=== PATIENT | female | born 1980 | race African-American/Black ===

== ENCOUNTER 2020-07-10 15:21 | Emergency (ER) | payer OTHER ==
[~2020-07-10] VITALS: Ht 165.1 cm; Wt 93.4 kg
[2020-07-10 15:42] VITALS: BP 133/91
[2020-07-10] MEDS ORDERED: Ketorolac 30mg Inj IV ONE (15:45)
--- NOTE | 2020-07-10 15:45 | Emergency Room Report ---
History of Present Illness General Chief Complaint: Back Pain-No Injury Source: Patient Present Illness HPI 39 YO female presents to the ED c/o 08/03 in severity right sided flank pain x 1 week. She denies fevers or chills. She denies hematuria or dysuria. Patient reports on occasion her pain will radiate downward towards the low abdomen. Patient does report increased urinary frequency which began last week. She reports hx of gallstones in the past. She denies abdominal tenderness. She reports she does experience episodes of pain even at rest. reports her symptoms come and go. She denies nausea, vomiting, constipation, diarrhea or suspicion of . She denies trauma or fall. Denies recent strenuous activities. Allergies: Coded Allergies: No Known Allergies (Unverified , 07/10/20) COVID-19 Screening Contact w/high risk pt: No Experienced COVID-19 symptoms?: No COVID-19 Testing performed AIR TUBE RELEASER: No Patient History Past Medical History: see triage record Past Surgical History: none Pertinent Family History: none Last Menstrual Period: implant Now: No Reviewed Nursing Documentation: PMH: Agreed; PSxH: Agreed Nursing Documentation-PMH Past Medical History: No History, Except For Hx Asthma: Yes Review of Systems All Other Systems: negative except mentioned in HPI Physical Exam Vital Signs Date Time Temp Pulse Resp B/P (MAP) Pulse Ox O2 Delivery O2 Flow Rate FiO2 07/10/20 15:30 98.4 79 18 136/122 (127) 95 Room Air Sp02 EP Interpretation: reviewed, normal General Appearance: no apparent distress, alert, GCS 15, non-toxic Head: normocephalic, atraumatic Eyes: bilateral eye normal inspection, bilateral eye PERRL ENT: hearing grossly normal, normal voice Neck: full range of motion Respiratory: lungs clear, normal breath sounds, speaking full sentences Cardiovascular #1: regular rate, rhythm Gastrointestinal: normal bowel sounds, non tender, soft, non-distended, no guarding Rectal: deferred Genitourinary: CVA tenderness (R) Musculoskeletal: normal range of motion, gait/station normal, non-tender - no bony ttp. no ST TTP Neurologic: alert, motor strength/tone normal, oriented x3, sensory intact, responsive, speech normal Psychiatric: judgement/insight normal Skin: no rash, normal color Medical Decision Making PA Attestation Dr. Oneil Is my supervising Physician whom patient management has been discussed with. Diagnostic Impression: Primary Impression: Urinary tract infection Qualified Codes: N30.01 - Acute cystitis with hematuria Additional Impressions: Cystitis Abnormal result on diagnostic study ER Course 39 YO female presents to the ED c/o 08/03 in severity right sided flank pain x 1 week. She denies fevers or chills. She denies hematuria or dysuria. Patient reports on occasion her pain will radiate downward towards the low abdomen. Patient does report increased urinary frequency which began last week. She reports hx of gallstones in the past. She denies abdominal tenderness. She reports she does experience episodes of pain even at rest. reports her symptoms come and go. She denies nausea, vomiting, constipation, diarrhea or suspicion of . She denies trauma or fall. Denies recent strenuous activities. Ddx considered but are not limited to Diverticulitis, acute appy, diarrhea,UC, PUD, GE, pancreatitis, gallstone, kidney stone, pyelonephritis, UTI, obstruction. Vital signs: are WNL, pt. is afebrile H&PE are most consistent with need to R/O renal calculi ORDERS: -CBC, CMP, lipase: All WNL/ Unremarkable - UA: Evidence of UTI -Urine Hcg: Negative - CT abdomen and pelvis no contrast: Please see radiological documentation section and report ED INTERVENTIONS: -- 1000NS -- Toradol IV There were some abnormal findings in regards to the liver area on diagnostic imaging. These findings were discussed with the patient and she was also given 2 copies of her official radiology report one for herself in 1 to give to her medical provider upon follow-up for these abnormal findings and suggested further evaluation. Patient verbalized her understanding and agreement with the need to follow-up for abnormal findings in a timely basis. Ultimately urinary tract infection was identified on this patient's work-up. Given extended period of symptoms in addition to radiation of pain towards the flank areas patient will be treated on a extended course of antibiotics to cover for mild pyelonephritis. Pt. is stable for Outpatient oral abx treatment. DISCHARGE: At this time pt. is stable for d/c to home. Will provide printed patient care instructions, and any necessary prescriptions. Care plan and follow up instructions have been discussed with the patient prior to discharge. Labs Test 9/16/20 15:41 07/10/20 16:00 Urine Color Yellow Urine Appearance Slightly cloudy Urine pH 5 (4.5-8.0) Urine Specific [place] 1.025 (1.005-1.035) Urine Protein Negative (NEGATIVE) Urine Glucose (UA) Negative (NEGATIVE) Urine Ketones 1+ (NEGATIVE) Urine Blood Negative (NEGATIVE) Urine Nitrite Negative (NEGATIVE) Urine Bilirubin Negative (NEGATIVE) Urine Urobilinogen 1 MG/DL (0.0-1.0) Urine Leukocyte Esterase 1+ (NEGATIVE) Urine RBC 0 /HPF (0 - 2) Urine WBC 10-15 /HPF (0 - 2) Urine Squamous Epithelial Cells Many /LPF (NONE/OCC) Urine Bacteria Moderate /HPF (NONE) Urine HCG, Qualitative Negative (NEGATIVE) White Blood Count 6.7 K/UL (4.8-10.8) Red Blood Count 4.22 M/UL (4.20-5.40) Hemoglobin 13.2 G/DL (12.0-16.0) Hematocrit 40.2 % (37.0-47.0) Mean Corpuscular Volume 95 FL (80-99) Mean Corpuscular Hemoglobin 31.2 PG (27.0-31.0) Mean Corpuscular Hemoglobin Concent 32.8 G/DL (32.0-36.0) Red Cell Distribution Width 12.8 % (11.6-14.8) Platelet Count 262 K/UL (150-450) Mean Platelet Volume 7.8 FL (6.5-10.1) Neutrophils (%) (Auto) 55.8 % (45.0-75.0) Lymphocytes (%) (Auto) 32.0 % (20.0-45.0) Monocytes (%) (Auto) 9.1 % (1.0-10.0) Eosinophils (%) (Auto) 1.8 % (0.0-3.0) Basophils (%) (Auto) 1.3 % (0.0-2.0) Sodium Level 139 MMOL/L (136-145) Potassium Level 3.9 MMOL/L (3.5-5.1) Chloride Level 104 MMOL/L (98-107) Carbon Dioxide Level 25 MMOL/L (21-32) Anion Gap 10 mmol/L (5-15) Blood Urea Nitrogen 15 mg/dL (7-18) Creatinine 0.9 MG/DL (0.55-1.30) Estimat Glomerular Filtration Rate > 60 mL/min (>60) Glucose Level 102 MG/DL (74-106) Calcium Level 8.9 MG/DL (8.5-10.1) Total Bilirubin 0.3 MG/DL (0.2-1.0) Aspartate Amino Transf (AST/SGOT) 21 U/L (15-37) Alanine Aminotransferase (ALT/SGPT) 34 U/L (12-78) Alkaline Phosphatase 54 U/L (46-116) Total Protein 8.0 G/DL (6.4-8.2) Albumin 3.9 G/DL (3.4-5.0) Globulin 4.1 g/dL Albumin/Globulin Ratio 1.0 (1.0-2.7) Lipase 151 U/L (73-393) CT/MRI/US Diagnostic Results CT/MRI/US Diagnostic Results : Imaging Test Ordered: CT Abdomen and pelvis without contrast Impression " IMPRESSION: 1. Study substantially limited due to lack of IV contrast. 2. Urinary bladder wall thickening could be incidental, due to high outlet pressures, or could represent cystitis. 3. Otherwise no acute abnormality definitively identified to account for patient presentation. 4. Recommend outpatient MRI abdomen without and with IV contrast to further characterize possible interpleural mass over the dome of the liver. Neoplasm not excluded. 5. Right S2 segment likely benign 1.5 cm bone island. 6. Cholecystectomy. 7. Bilateral sacroiliitis." --- Per official radiology report- Please see report for specific details. Last Vital Signs Date Time Temp Pulse Resp B/P (MAP) Pulse Ox O2 Delivery O2 Flow Rate FiO2 07/10/20 15:30 98.4 79 18 136/122 (127) 95 Room Air Status: improved Disposition: HOME, SELF-CARE Condition: Stable Scripts Hydrocodone Bit/Acetaminophen 5-325* (NORCO 5-325 TABLET*) 1 Each Tablet 1 TAB ORAL Q6H PRN for FOR PAIN, #12 TAB 0 Refills Prov: Nely Ramirez 07/10/20 Phenazopyridine Hcl* (PYRIDIUM*) 100 Mg Tablet 100 MG ORAL THREE TIMES A DAY for 3 Days, #9 TAB Prov: Nely Ramirez 07/10/20 Trimethoprim/Sulfamethoxazole 160/800* (BACTRIM DS TABLET*) 1 Each Tablet 1 TAB ORAL TWICE A DAY for 14 Days, #28 TAB Prov: Nely Ramirez 07/10/20 Referrals: [facility] [place] [facility] Patient Instructions: Pyelonephritis, Adult, [id number] Additional Instructions: Take medications as directed. Follow up with a Primary Care Provider in 3-5 days, even if your symptoms have resolved. MRI needs to be performed as an outpatient to further evaluate the mass above your liver that was found on CT Scan. please take a copy of the official radiology report provided with you to give to your doctor. --Please review list of primary care clinics, if you do not already have a primary care provider Return sooner to ED if new symptoms occur, or current symptoms become worse. - Please note that this Emergency Department Report was dictated using [employer] loader technology software, occasionally this can lead to erroneous entry secondary to interpretation by the dictation equipment. Nely Ramirez Jul 10, 2020 15:45
[2020-07-10 16:20] LABS: BASOPHILS % (AUTO) 1.3 % (0.0-2.0); EOSINOPHILS % (AUTO) 1.8 % (0.0-3.0); HEMATOCRIT 40.2 % (37.0-47.0); HEMOGLOBIN 13.2 G/DL (12.0-16.0); MEAN CORPUSCULAR VOLUME 95 FL (80-99); MONOCYTES % (AUTO) 9.1 % (1.0-10.0); NEUTROPHILS % (AUTO) 55.8 % (45.0-75.0); PLATELET COUNT 262 K/UL (150-450); RED BLOOD COUNT 4.22 M/UL (4.20-5.40); RED CELL DISTRIBUTION WIDTH 12.8 % (11.6-14.8); WHITE BLOOD COUNT 6.7 K/UL (4.8-10.8)
[2020-07-10 16:24] LABS: APPEARANCE,URINE SLIGHTLY CLOUDY; BILIRUBIN, URINE NEGATIVE (NEGATIVE); GLUCOSE, URINE (UA) NEGATIVE (NEGATIVE); KETONES,URINE 1+ (NEGATIVE); LEUKOCYTE ESTERASE ,URINE 1+ (NEGATIVE); NITRITE,URINE NEGATIVE (NEGATIVE); PH,URINE 5 (4.5-8.0); PROTEIN,URINE NEGATIVE (NEGATIVE); UROBILINOGEN,URINE 1 MG/DL (0.0-1.0)
[2020-07-10 16:25] LABS: COLOR,URINE YELLOW
[2020-07-10 16:30] LABS: ANION GAP 10 mmol/L (5-15); BLOOD UREA NITROGEN 15 mg/dL (7-18); CALCIUM 8.9 MG/DL (8.5-10.1); CARBON DIOXIDE 25 MMOL/L (21-32); CHLORIDE 104 MMOL/L (98-107); CREATININE 0.9 MG/DL (0.55-1.30); POTASSIUM 3.9 MMOL/L (3.5-5.1); SODIUM 139 MMOL/L (136-145)
[2020-07-10 16:36] LABS: ALANINE AMINOTRANSFERASE 34 U/L (12-78); ALBUMIN 3.9 G/DL (3.4-5.0); ALKALINE PHOSPHATASE 54 U/L (46-116); ASPARTATE AMINO TRANSFERASE 21 U/L (15-37); BILIRUBIN,TOTAL 0.3 MG/DL (0.2-1.0)
--- NOTE | 2020-07-10 17:19 | Diagnostic Imaging Report ---
EXAM: CT Abdomen and Pelvis Without Intravenous Contrast CLINICAL HISTORY: PAIN TECHNIQUE: Axial computed tomography images of the abdomen and pelvis without intravenous contrast. CTDI is 13.3 mGy and DLP is 721.1 mGy-cm. One or more of the following dose reduction techniques were used: automated exposure control, adjustment of the mA and/or kV according to patient size, use of iterative reconstruction technique. Coronal and sagittal reformatted images were created and reviewed. COMPARISON: No relevant prior studies available. FINDINGS: Limitations: Study substantially limited due to lack of IV contrast. Lung bases: Unremarkable. No mass. No consolidation. Pleural space: Along the right aspect of the posterolateral hepatic dome bordering hepatic segment VII potentially within the pleural space is a 7.7 x 3.1 x 4.1 cm soft tissue mass which is indeterminate. ABDOMEN: Liver: Otherwise unremarkable liver. Gallbladder and bile ducts: Cholecystectomy. No ductal dilation. Pancreas: Unremarkable. No ductal dilation. Spleen: Unremarkable. No splenomegaly. Adrenals: Unremarkable. No mass. Kidneys and ureters: Unremarkable. No obstructing stones. No hydronephrosis. Stomach and bowel: Unremarkable. No obstruction. No mucosal thickening. PELVIS: Appendix: No findings to suggest acute appendicitis. Bladder: Urinary bladder wall thickening could be incidental, due to high outlet pressures, or could represent cystitis. No stones. Reproductive: Unremarkable as visualized. ABDOMEN and PELVIS: Intraperitoneal space: Left anterolateral abdominal intraperitoneal likely operative clips of uncertain significance. No free air. No significant fluid collection. Bones/joints: Bilateral sacroiliitis. Right S2 segment likely benign 1.5 cm bone island. No acute fracture. No dislocation. Soft tissues: Fat-containing periumbilical hernia. Vasculature: Unremarkable. No abdominal aortic aneurysm. Lymph nodes: Unremarkable. No enlarged lymph nodes. IMPRESSION: 1. Study substantially limited due to lack of IV contrast. 2. Urinary bladder wall thickening could be incidental, due to high outlet pressures, or could represent cystitis. 3. Otherwise no acute abnormality definitively identified to account for patient presentation. 4. Recommend outpatient MRI abdomen without and with IV contrast to further characterize possible interpleural mass over the dome of the liver. Neoplasm not excluded. 5. Right S2 segment likely benign 1.5 cm bone island. 6. Cholecystectomy. 7. Bilateral sacroiliitis.
[2020-07-10] MEDS ORDERED: NORCO 5-325 TA1 EAC1 ORAL (18:01)
[2020-07-10] MEDS ORDERED: BACTRIM DS TAB1 EAC1 ORAL (18:01)
[2020-07-10] MEDS ORDERED: PHENAZOPYRIDIN100 MG ORAL (18:01)
[2020-07-10 18:06] VITALS: BP 133/91
== END 2020-07-10 18:06 | disposition home or self-care (01) ==
LOC: EMR 15:48
DX: N30.01 Acute cystitis with hematuria (principal); Z90.49 Acquired absence of other specified parts of digestive tract; M46.1 Sacroiliitis, not elsewhere classified; K42.9 Umbilical hernia without obstruction or gangrene
CPT/HCPCS: 36415; 74176; 80053; 81003; 81025; 83690; 85025; 87086; 96361; 96374; J1885; J7030; Z7502; 99284